=== PATIENT | female | born 1975 | race Caucasian/White ===

== ENCOUNTER → 2019-04-12 14:00 | Outpatient (CLI) | payer OTHER, SELFPAY ==
--- NOTE | 2019-04-12 | DI.MRI.S_ITS ---
PROCEDURE: MR KNEE RT WO CON INDICATIONS: Pain in right knee TECHNIQUE: Noncontrast sagittal PD fast spin echo and T2 fast spin echo with fat saturation, sagittal 3-D FLASH with fat saturation; coronal T1 spin echo and PD fast spin echo with fat saturation, and axial PD fast spin echo with fat saturation through the knee. COMPARISON: None. FINDINGS: Image quality: Excellent. Menisci: Medial meniscus intact. Lateral meniscus intact. Cruciate ligaments: Anterior cruciate ligament appears intact. Posterior cruciate ligament appears intact. Medial structures: The medial collateral ligament appears intact. Semimembranosus tendon appears intact. Visualized portions of the pes anserinus tendons appear normal. No abnormal bursal fluid. Lateral structures: The lateral collateral ligament demonstrates thickening and intrasubstance signal change in keeping with low grade sprain, statistically chronic, although technically age indeterminate. Biceps femoris tendon appears intact. Popliteus tendon grossly unremarkable. Iliotibial band appears intact. Anterior structures: Quadriceps tendon intact. Medial and lateral patellofemoral ligaments intact. There is mild patellar tendinopathy. Prepatellar and superficial infrapatellar subcutaneous edema/fluid. Bones and cartilage: No focal marrow contusion or discrete low signal fracture line. Within the medial compartment, mild diffuse surface fraying of the tibial and femoral cartilage Within the lateral compartment, minimal surface fraying of the central femoral cartilage. The tibial cartilage appears grossly intact Within the patellofemoral compartment, cartilage appears intact Joint space: No pathologic joint effusion. Multiloculated Singletary's cyst measuring overall 4 cm in the cephalocaudad dimension. No specific evidence of intra-articular loose body. IMPRESSION: Mild patellar tendinopathy with adjacent edema/fluid Minimal joint degeneration Singletary's cyst as above Dictated by: Charly Hilton M.D. on 04/15/2019 at 8:06 Approved by: Charly Hilton M.D. on 04/15/2019 at 8:14
== END ==
PROVIDERS: Visit Provider Family Medicine
DX: M25.561 Pain in right knee (principal)
CPT/HCPCS: 73721

== ENCOUNTER → 2020-07-11 14:25 | Outpatient (CLI) | payer OTHER, SELFPAY ==
--- NOTE | 2020-07-11 14:30 | DI.MG.S_ITS ---
BILATERAL DIGITAL SCREENING MAMMOGRAM 3D/2D WITH CAD: 07/11/2020 CLINICAL: Routine screening. Baseline exam. No prior exams were available for comparison. There are scattered fibroglandular elements in both breasts. Current study was also evaluated with a Computer Aided Detection (CAD) system. No significant masses, calcifications, or other findings are seen in either breast. IMPRESSION: NEGATIVE There is no mammographic evidence of malignancy. A 1 year screening mammogram is recommended. This exam was interpreted at Station ID: [id number]. NOTE: For mammograms, a report in lay terms will be sent to the patient. Approximately 15% of breast malignancies will not be visualized mammographically. In the management of a palpable breast mass, a negative mammogram must not discourage biopsy of a clinically suspicious lesion. Electronically Signed By: Gui bailey/ruth:07/13/2020 08:07:32 letter sent: Normal Exam ACR BI-RADS Category 1: Negative [id number]
== END ==
PROVIDERS: PCP Family Medicine; Referring Provider Family Medicine; Visit Provider Family Medicine
DX: Z12.31 Encounter for screening mammogram for malignant neoplasm of breast (principal)
CPT/HCPCS: 77063; 77067

== ENCOUNTER → 2020-12-07 13:07 | Outpatient (CLI) | payer OTHER, SELFPAY ==
--- NOTE | 2020-12-07 | DI.RAD.S_ITS ---
PROCEDURE: XR SACRUM COCCYX MIN 2V INDICATIONS: PAIN TECHNIQUE: 3 views of the sacrum and coccyx acquired. COMPARISON: MR, L-SPINE WITHOUT CONTRAST, 09/24/2009, 14:23. FINDINGS: Bones: No fractures or dislocations. No suspicious bony lesions. Partially visualized lower margin of a fixation procedure that encompasses at least L4 and L5. Soft tissues: Visualized bowel gas pattern is normal. No suspicious soft tissue densities. IMPRESSION: No abnormality seen at the sacrococcygeal junction and lower sacrum. Dictated by: Sami Avelar M.D. on 12/07/2020 at 14:26 Approved by: Sami Avelar M.D. on 12/07/2020 at 14:27
--- NOTE | 2020-12-07 | DI.RAD.S_ITS ---
PROCEDURE: XR CERVICAL SPINE 2V OR 3V INDICATIONS: PAIN TECHNIQUE: 3 view(s) of the cervical spine were acquired. COMPARISON: None. FINDINGS: Bones: No fractures or dislocations to the T1 level. The lateral masses of C1 appear intact on the odontoid view. No suspicious bony lesions. There is moderately severe degenerative disc disease at C5-6 and C6-7, with anterior and posterior projecting osteophytes. Spinal and foraminal stenosis may be present at the lower 3rd of the cervical spine Soft tissues: No prevertebral soft tissue swelling. IMPRESSION: Moderately severe degenerative disc disease C5-C6 and C6-C7 with likelihood of spinal and foraminal stenosis at these 2 levels. Dictated by: Sami Avelar M.D. on 12/07/2020 at 14:22 Approved by: Sami Avelar M.D. on 12/07/2020 at 14:24
== END ==
PROVIDERS: PCP Family Medicine; Referring Provider Family Medicine; Visit Provider Family Medicine
DX: M79.18 Myalgia, other site (principal); M50.322 Other cervical disc degeneration at C5-C6 level; M25.519 Pain in unspecified shoulder
CPT/HCPCS: 72040; 72220

== ENCOUNTER → 2021-02-03 12:10 | Outpatient (CLI) | payer OTHER, SELFPAY ==
--- NOTE | 2021-02-03 | DI.US.S_ITS ---
PROCEDURE: US PELVIC COMPLETE INDICATIONS: Excessive and frequent menstruation with irregular TECHNIQUE: Real-time scanning was performed of the pelvic organs, with image documentation. Additional endovaginal scanning was necessary due to incomplete visualization of the adnexal and endometrial structures by transabdominal scanning. COMPARISON: None. FINDINGS: Uterus: Anteverted, mildly heterogeneous echotexture, and measures 11.4 x 5.7 x 6.2 cm. The endometrium measures 8.7 mm in combined thickness. Ovaries: The right ovary measures 4 x 1.9 x 2.1 cm. A 1.2 x 1.5 x 1.3 cm hypoechoic lesion is seen in the right ovary, likely reflecting a cyst. An additional thick-walled lesion is seen in the right ovary, measuring 1.6 x 1.5 cm, which may reflect a corpus luteum. The left ovary measures 3.1 x 2.3 x 2.5 cm. A 1.5 x 1.4 x 1.5 cm hypoechoic lesion is seen in the left ovary, most consistent with a cyst. Other: No pathologic free abdominal or pelvic fluid. IMPRESSION: Thick-walled lesion in the right ovary as detailed above, which may reflect a corpus luteum. Dictated by: Uriah Méndez M.D. on 02/03/2021 at 12:54 Approved by: Uriah Méndez M.D. on 02/03/2021 at 12:58
== END ==
PROVIDERS: PCP Family Medicine; Referring Provider Family Medicine; Visit Provider Family Medicine
DX: N92.1 Excessive and frequent menstruation with irregular cycle (principal); N83.9 Noninflammatory disorder of ovary, fallopian tube and broad ligament, unspecified
CPT/HCPCS: 76830; 76856

== ENCOUNTER → 2021-02-04 17:56 | Outpatient (CLI) | payer OTHER, SELFPAY | PROVIDERS: PCP Family Medicine; Referring Provider Family Medicine; Visit Provider Family Medicine | DX: M25.512 Pain in left shoulder (principal); Z53.20 Procedure and treatment not carried out because of patient's decision for unspecified reasons ==

== ENCOUNTER → 2021-09-23 10:49 | Outpatient (CLI) | payer OTHER, SELFPAY ==
[2021-09-23 11:31] LABS: Hemoglobin A1C% w Est Avg Glu 5.3 % (4.0-6.0)
[2021-09-25 13:48] LABS: Cholesterol, Total 132 mg/dL (100-199); HDL-Cholesterol 39 mg/dL (>39); HDL-Particle (Total) 30.6 umol/L (>=30.5); LDL Particle 1043 nmol/L (<1000); LDL Size 20.7 nm (>20.5); LDL-Cholsterol 72 mg/dL (0-99); LP-IR Score 73 (<=45); Small LDL- Particle 578 nmol/L (<=527); Triglycerides 118 mg/dL (0-149)
== END ==
PROVIDERS: PCP Family Medicine; Referring Provider Internal Medicine Cardiovascular Disease; Visit Provider Internal Medicine Cardiovascular Disease
DX: E78.41 Elevated Lipoprotein(a) (principal); R73.9 Hyperglycemia, unspecified
CPT/HCPCS: 36415; 80061; 83036; 83704

== ENCOUNTER → 2021-11-24 17:31 | Outpatient (ROUT) | payer OTHER, SELFPAY ==
[2021-11-24 18:13] LABS: Influenza A - CEPHEID Flu A NEGATIVE (NEGATIVE); Influenza B - CEPHEID Flu B NEGATIVE (NEGATIVE)
[2021-11-24 19:27] LABS: COVID-19 CEPHEID PCR (VTM/NP) Negative (Negative)
== END ==
PROVIDERS: PCP Family Medicine; Visit Provider Family Medicine
DX: R05.1 Acute cough (principal); J01.90 Acute sinusitis, unspecified; R06.2 Wheezing; Z11.52 Encounter for screening for COVID-19
CPT/HCPCS: 0240U

== ENCOUNTER → 2022-01-29 10:20 | Outpatient (CLI) | payer OTHER, SELFPAY ==
[2022-01-29 12:32] LABS: Follicle Stimulating Hormone 11.5 mIU/mL
== END ==
PROVIDERS: PCP Family Medicine; Referring Provider Obstetrics & Gynecology; Visit Provider Obstetrics & Gynecology
DX: N92.6 Irregular menstruation, unspecified (principal)
CPT/HCPCS: 36415; 83001

== ENCOUNTER → 2022-02-01 14:46 | Outpatient (CLI) | payer OTHER, SELFPAY ==
--- NOTE | 2022-02-01 14:48 | DI.US.S_ITS ---
PROCEDURE: US PELVIC COMPLETE INDICATIONS: FOLLOW UP ULTRASOUND 02/03/2021 TECHNIQUE: Real-time scanning was performed of the pelvic organs, with image documentation. Additional endovaginal scanning was necessary due to incomplete visualization of the adnexal and endometrial structures by transabdominal scanning. COMPARISON: [facility], US, US PELVIC COMPLETE, 02/03/2021, 12:20. FINDINGS: Uterus: Uterus measures 4.2 x 5.4 x 9.5 with no uterine mass and normal thickness endometrium. There is heterogenous complex fluid within the uterine cavity. Ovaries: The right ovary measures 1.9 x 2.1 x 4.0 centimeters. There is an involuting corpus luteum cyst in the right ovary measuring 1.2 x 1.3 x 1.5 centimeters. Dominant follicle in the left ovary measuring approximately 1.3 centimeters. No solid ovarian or adnexal mass identified Other: No pathologic free abdominal or pelvic fluid. IMPRESSION: Right ovarian mass seen previously is not significantly changed but appears more hypoechoic with a thinner wall, consistent with an involuting corpus luteum cyst. Heterogenous complex fluid in the uterine cavity is consistent with blood products. We strive to produce accurate, complete, and clear reports of imaging services. To assist us in improving patient care, this report was composed using standard report templates and voice recognition software. Therefore, it may contain abnormal punctuation, insertions and/or omissions. Occasional wrong-word or sound-alike substitutions may occur. Though we review the report and make efforts to correct it, we do recommend that the report be read carefully in proper context to recognize any text inaccuracies. Dictated by: Ervin Lee M.D. on 02/01/2022 at 16:22 Approved by: Ervin Lee M.D. on 02/01/2022 at 16:29
== END ==
PROVIDERS: PCP Family Medicine; Referring Provider Obstetrics & Gynecology; Visit Provider Obstetrics & Gynecology
DX: N92.6 Irregular menstruation, unspecified (principal); R10.2 Pelvic and perineal pain; N83.9 Noninflammatory disorder of ovary, fallopian tube and broad ligament, unspecified
CPT/HCPCS: 76830; 76856

== ENCOUNTER → 2022-12-13 14:47 | Outpatient (CLI) | payer OTHER, SELFPAY ==
--- NOTE | 2022-12-13 | DI.MG.S_ITS ---
BILATERAL DIGITAL SCREENING MAMMOGRAM 3D/2D WITH CAD: 12/13/2022 CLINICAL: Routine screening. Comparison is made to exam dated: 07/11/2020 mammogram - [facility]. There are scattered areas of fibroglandular density in both breasts (category b / 25%-50% glandular tissue). Current study was also evaluated with a Computer Aided Detection (CAD) system. No significant masses, calcifications, or other findings are seen in either breast. There has been no significant interval change. IMPRESSION: NEGATIVE There is no mammographic evidence of malignancy. A 1 year screening mammogram is recommended. Based on the Tyrer Cuzick model (a risk assessment model) the patient's lifetime risk is 10.2% and her 10 year risk is 2.2%. According to the ACR, ACS, and NCCN guidelines, an annual breast MRI exam along with mammogram is recommended if the patient's lifetime risk is 20% or greater. This exam was interpreted at Station ID: [id number]. NOTE: For mammograms, a report in lay terms will be sent to the patient. Approximately 15% of breast malignancies will not be visualized mammographically. In the management of a palpable breast mass, a negative mammogram must not discourage biopsy of a clinically suspicious lesion. Electronically Signed By: Mick benitez/ruth:12/14/2022 13:20:37 letter sent: Normal Exam ACR BI-RADS Category 1: Negative 3341F
== END ==
PROVIDERS: PCP Family Medicine; Referring Provider Family Medicine; Visit Provider Family Medicine
DX: Z12.31 Encounter for screening mammogram for malignant neoplasm of breast (principal)
CPT/HCPCS: 77063; 77067

== ENCOUNTER → 2023-01-05 16:19 | Outpatient (CLI) | payer OTHER, SELFPAY ==
--- NOTE | 2023-01-05 | DI.US.S_ITS ---
PROCEDURE: US PELVIC COMPLETE INDICATIONS: dysmenorrhea TECHNIQUE: Real-time scanning was performed of the pelvic organs, with image documentation. Additional endovaginal scanning was necessary due to incomplete visualization of the adnexal and endometrial structures by transabdominal scanning. COMPARISON: [facility], , PELVIC COMPLETE, 02/03/2021, 12:20. [facility], , PELVIC COMPLETE, 02/01/2022, 15:04. FINDINGS: Uterus: Uterus is anteverted and normal in size at 10.3 x 5.7 x 6.1 cm. The myometrium is homogeneous. The endometrium measures 10 mm combined thickness. There are multiple uterine fibroids. -there is a 1.4 x 1.3 x 1.3 cm subserosal fibroid is in the posterior uterine wall at midline. -there is a 1.0 x 0.8 x 1.3 cm intramural fibroid in the anterior uterine wall at midline. -there is a 1.2 x 1.3 x 0.8 cm intramural fibroid in the left posterior uterine wall. Ovaries: The right ovary measures 3.3 x 1.9 x 2 point cm, with a calculated ovarian volume of 7.8 cc. The left ovary measures 3.4 x 2.1 x 2.5 cm, with a calculated ovarian volume of 9.5 cc. The ovaries have a normal sonographic appearance. Less than 12 follicles can be seen in each ovary. No adnexal masses are seen. Other: No pathologic free abdominal or pelvic fluid. IMPRESSION: 1. Myomatous uterus with multiple uterine fibroids. 2. Normal ovaries. We strive to produce accurate, complete, and clear reports of imaging services. To assist us in improving patient care, this report was composed using standard report templates and voice recognition software. Therefore, it may contain abnormal punctuation, insertions and/or omissions. Occasional wrong-word or sound-alike substitutions may occur. Though we review the report and make efforts to correct it, we do recommend that the report be read carefully in proper context to recognize any text inaccuracies. Dictated by: Sanam Nuñez M.D. on 01/05/2023 at 20:08 Approved by: Sanam Nuñez M.D. on 01/06/2023 at 11:10
== END ==
PROVIDERS: PCP Family Medicine; Referring Provider Family Medicine; Visit Provider Family Medicine
DX: N94.6 Dysmenorrhea, unspecified (principal); D25.1 Intramural leiomyoma of uterus; D25.2 Subserosal leiomyoma of uterus
CPT/HCPCS: 76830; 76856; 93975

== ENCOUNTER 2023-04-24 12:06 | Day surgery (SDC) | payer OTHER, SELFPAY ==
[2023-04-13 14:23] VITALS: BMI 44.9
[2023-04-24] VITALS (7 sets, daily range): BP systolic 123–151; BP diastolic 78–104; PULSE 64–82; RESP 9–18; TEMP 36.3–37.1; O2SAT 89–99; BMI 45.4
--- NOTE | 2023-04-24 | PATH_ITS ---
[facility] Accession Number: [id number] No. of containers..02 Tissue . 01 Material submitted: . PART A: fallopian tube - BILATERAL FALLOPAIN TUBES PART B: peritoneum - PERITONEAL BIOPSY . 01 Diagnosis: A. Bilateral Fallopian Tubes, Salpingectomies: Bilateral fimbriated fallopian tubes with simple benign peritubal cysts. No evidence of neoplasm. . B. Peritoneum, Biopsy: Consistent with endometriosis. No evidence of malignancy. [facility] 05/01/2023 1122 Local . 01 Electronically signed: . Tex Dimas MD, PhD, Pathologist NPI- [id number] . 01 Gross description: . A. Received in formalin, labeled with the patient's name, , and bilateral fallopian tubes, consists of two unoriented fimbriated fallopian tubes measuring 5.7 x 0.5 cm and 5.0 x 0.6 cm, respectively. Both tubes have violaceous smooth serosa with multiple cystic structures measuring up to 0.2 cm in greatest dimension filled with clear serous fluid. Sectioning reveals unremarkable stellate lumens. Machine Fitter sections to include one-half of bisected fimbriae and cross sections are submitted as follows: A1: Longer fallopian tube. A2: [place] fallopian tube. B. Received in formalin, labeled with the patient's name, , and peritoneal biopsy, consists of an irregular lima soft tissue fragment measuring 0.7 x 0.4 x 0.3 cm. One aspect is inked blue. The specimen is bisected and submitted entirely in cassette B1. ([id number]) /MRV 04/25/2023 1229 Local . 01 Microscopic: . B. Sections are of fibrous tissue with irregular cystic spaces lined by a bland-appearing cuboidal epithelium. To further evaluate the focus of interest, a limited panel of immunohistochemical stains is performed (each with an appropriately positive control). The epithelium is strongly and diffusely positive for PAX8 nuclear immunoreactivity. A CD10 immunohistochemical stain highlights surrounding endometrial type stroma, not apparent on the H/E stain. The overall features are consistent with endometriosis. No malignancy is identified. . . * This test was developed and its performance characteristics determined by [facility]. It has not been cleared or approved by the U.S. Food and Drug Administration. The FDA has determined that such clearance or approval is not necessary. This test is used for clinical purposes. It should not be regarded as investigational or for research. . 01 Pathologist provided ICD-10: Z30.2, N80.9 . 01 CPT . 798213, 395386, X50253, C84310 Specimen Comment: A courtesy copy of this report has been sent to [facility] Pathology Performed at: 01 [facility] [address] [place] [address], [place], [place] [id number] MD Rick Lamb MD Phone: [phone]
[2023-04-24] MEDS: LACTATED RINGERS 1,000 ML 42 ML IV (12:29)
--- NOTE | 2023-04-24 12:50 | PM.PREOP ---
Pre-operative Note Interval Note History & Physical reviewed/Exam performed by Physician: Yes Changes to H&P: No H&P completed within 30 days and has changed as indicated here:: See H&P from 04/18/23.
[2023-04-24] MEDS: SCOPOLAMINE 1 PATCH TOP (13:03)
--- NOTE | 2023-04-24 14:00 | SUR.OPER ---
Lithotomy on padded OR bed, head on pillow, arms secured on padded arm boards at <90 degrees abduction. Legs secured in padded yellow fins stirrups.
[2023-04-24] MEDS: BUPIVACAINE 0.25% (PF) VIAL 30 ML INJ (14:08)
--- NOTE | 2023-04-24 14:41 | PM.OP.1 ---
Operative Date/Time/Diagnoses Date of procedure: 04/24/23 Time of procedure: 13:30 Pre-op diagnosis: Severe dysmenorrhea Post-op diagnosis: same Procedure & Clinicians Procedure: Diagnostic laparoscopy Laparoscopic opportunistic bilateral salpingectomy Fulguration of endometriosis Same procedure as scheduled: Yes Indications: 48-year-old admitted today for planned laparoscopy as above. She reports always having pain during her periods, but this has gotten worse since the delivery of her child 8 years ago. She states that she has severe cramps with nausea during her period. She has a hot shooting pain that radiates from her hips as well. She also reports having migraines during her menstrual cycles. She reports regular monthly cycles lasting 4-5 days with moderate to heavy flow. She is not using anything for contraception. She previously tried oral contraceptive pills at age 39 however had severe nausea, vomiting, and food aversions with it. She has tried Celebrex, ice, heating pads, but is debilitated during her period. Surgeon: Marina Oliva Click Yes if Unassisted: Yes Anesthesia Type: General Operative Notes Findings: Several stellate lesions seen in the ovarian fossae and uterosacral ligaments. Normal appearing uterus, bilateral fallopian tubes, and bilateral ovaries. Left ovary with 1cm hemorrhagic cyst vs. endometrioma. Normal appearing liver edge. Specimen(s): other (bilateral fallopian tubes, peritoneal biopsy) Estimated Blood Loss (mL): 5 Blood products transfused: none Procedure in detail: The risks, benefits, indications and alternatives of the procedure were reviewed with the patient and informed consent was obtained. The pt was taken to the operating room where general anesthesia was obtained without difficulty. The pt was then placed in the low lithotomy position using gel-padded Aurelio Stirrups. Sequential compression devices were placed bilaterally for VTE prophylaxis. Pt was then prepped and draped in the usual sterile fashion. A Bryan catheter was placed without difficulty. Attention was then turned to the patient?s abdomen where a 5mm skin incision was made in the inferior aspect of the umbilicus after injection of 0.25% marcaine. A 5mm trocar and sleeve were then carefully introduced into the peritoneal cavity under direct visualization at a 90-degree angle while tenting up the abdominal wall. Intra-peritoneal placement was confirmed under direct visualization with the laparoscope with entry pressure <5mmHg. A pneumoperitoneum was obtained with several liters of CO2 gas, maximum pressure of 15mmHg. Upon entry into the peritoneal cavity, structures immediately below the incision were inspected and found to be free of injury. Two additional 5mm trocars were placed in the left lateral aspect of the abdominal wall under direct laparoscopic visualization after injection of 0.25% marcaine at each site. A survey of the pt?s abdomen and pelvis was notable for the above findings. Using an atraumatic grasper, the left fallopian tube was tented up. In a stepwise fashion, the left fallopian tube was removed from the fimbriated end to the cornual end with ultimate excision of the fallopian tube using the Ligasure. The same procedure was performed on the patient?s right side to excise the right fallopian tube. Both fallopian tubes were removed from the abdomen via the lateral port sites. All pedicles were re-examined and noted to be hemostatic. A stellate lesion was localized on the right uterosacral ligament and grasped with a grasper. This peritoneum was then excised with monopolar scissors. The other stellate lesion seen in the left ovarian fossa was fulgurated with the monopolar scissors. The gas was then turned off and all CO2 was removed from the pt?s abdomen. The trocars were removed. The skin incision sites were reapproximated using 4-0 monocryl and dermabond. The bryan catheter was removed from the bladder. All instruments were confirmed to be removed from the vagina. At the completion of the case the sponge and needle counts were correct x 2. The patient tolerated the procedure well and was taken to the PACU in stable condition. Complications: none Post-operative Condition: stable Disposition: PACU Plan for aftercare: Follow-up in clinic as scheduled.
[2023-04-24] MEDS: OXYCODONE IR 5 MG TABLET PO (14:59)
[2023-04-24] MEDS: ONDANSETRON 4 MG/2 ML INJ IV (15:21)
== END 2023-04-24 15:46 | disposition home or self-care (01) ==
PROVIDERS: PCP Family Medicine; Referring Provider Student in an Organized Health Care Education/Training Program; Visit Provider Student in an Organized Health Care Education/Training Program
PROC: (CPT 58661; principal; 2023-04-24 13:30)
DX: N94.6 Dysmenorrhea, unspecified (principal); R10.2 Pelvic and perineal pain; N83.8 Other noninflammatory disorders of ovary, fallopian tube and broad ligament
CPT/HCPCS: 58661; 58662; J1170; J1885; J2250; J2405; J2704; J3010

== ENCOUNTER 2023-08-21 12:46 | Day surgery (SDC) | payer OTHER, SELFPAY ==
[2023-08-14 12:38] VITALS: BMI 45.6
[2023-08-21] VITALS (24 sets, daily range): BP systolic 110–146; BP diastolic 58–100; PULSE 72–84; RESP 11–19; TEMP 36–36.6; O2SAT 92–99; BMI 45.6
--- NOTE | 2023-08-21 | PATH_ITS ---
[facility] Accession Number: [id number] No. of containers..01 Tissue . 01 Material submitted: . uterus - UTERUS, OVARIES, CERVIX . 01 Diagnosis: UTERUS, BILATERAL OVARIES AND CERVIX, HYSTERECTOMY AND BILATERAL OOPHERECTOMY: Cervix with no significant diagnostic alterations. Secretory endometrium. Leiomyomata. Bilateral ovaries with benign simple serous cyst, cysic follicle and and inclusion cyst. [facility] 08/29/2023 1254 Local . 01 Electronically signed: . Desi Smith MD, Pathologist NPI- [id number] . 01 Gross description: . Received in formalin with two identifiers and uterus, bilateral tubes, ovaries, and cervix, is a partially opened uterus (187 grams, 10.6 cm superior to inferior, 8.5 cm medial to lateral, 6.2 cm anterior to posterior) with a bisected cervix (reapproximated to measure 2.5 x 2.4 cm), left ovary (14 grams, 4.7 x 2.9 x 2.0 cm), right ovary (13 grams, 5.4 x 3.0 x 2.0 cm) with no fimbriae, and possible fallopian tube stumps identified, consistent with previous salpingectomy. . The ectocervix is lima and finely granular with a patulous os reapproximated to measures 0.4 cm in diameter. The anterior paracervical margin has a surgical defect measuring 4.1 cm in length stopping before the uterine serosa, and the posterior paracervical margin has a surgical defect measuring 1.5cm in length. The anterior paracervical margin is inked blue while the posterior paracervical margin is inked black. . The serosa is lima to congested with no distinct pinpoint areas of hemorrhage identified. The endocervical canal has lima herringbone mucosa and measures 3.9 cm in length. The endometrial cavity measures 3.2 cm from cornu to cornu and 5.5 cm in length with red, lush endometrium that averages 0.3 cm thick. The myometrium has moderate trabeculation and measures up to 2.9 cm in maximum thickness with several well-circumscribed, white, whorled nodules ranging from 0.3 to 1.6 cm in greatest dimension with no hemorrhage or necrosis identified. . The left ovary has a lima to congested, smooth external surface. The cut surface has several thin, smooth-walled cystic structures ranging from 0.4 to 1.4 cm in greatest dimension filled with lima serous fluid. The remaining cut surfaces are physiologic and unremarkable. . The right ovary has a lima to congested, cerebriform external surface, and the cut surface has a cystic structure measuring 1.3 cm in greatest dimension within smooth waterman filled with hemorrhagic material. . Tentering Machine Off Bearer sections are submitted as follows: A1: Anterior and posterior cervix. A2: Anterior full thickness section. A3: Posterior full thickness section. A4: Serosa. A5: Rep nodules. A6: Left ovary. A7: Right ovary. ([id number]) /MRV 08/22/2023 1358 Local . 01 Pathologist provided ICD-10: D25.9 . 01 CPT . 797280 Specimen Comment: A courtesy copy of this report has been sent to [facility] Pathology Performed at: [address] [facility] Cytology [address] [place] [address], [place], [place] [id number] MD Rick Lamb MD Phone: [phone]
[2023-08-21] MEDS: SCOPOLAMINE 1 PATCH TOP (13:02)
[2023-08-21] MEDS: LACTATED RINGERS 1,000 ML 42 ML IV ×3 (13:02→16:45)
--- NOTE | 2023-08-21 13:20 | PM.PREOP ---
Pre-operative Note Interval Note History & Physical reviewed/Exam performed by Physician: Yes Changes to H&P: No H&P completed within 30 days and has changed as indicated here:: see H&P from 08/15/23
[2023-08-21] MEDS: ACETAMINOPHEN IV 1,000 MG/100 ML VIAL 400 MG IV (13:40)
[2023-08-21] MEDS: CEFAZOLIN VIAL 3 GM in SODIUM CHLORIDE 0.9% 100 ML IV (13:50)
[2023-08-21] MEDS: BUPIVACAINE 0.25% (PF) VIAL 30 ML INJ (15:16)
--- NOTE | 2023-08-21 16:28 | P.OP_ITS ---
Operative Date/Time/Diagnoses Date of procedure: 08/21/23 Time of procedure: 14:00 Pre-op diagnosis: 1. Abnormal uterine bleeding 2. Pelvic pain 3. Uterine fibroids 4. Endometriosis Post-op diagnosis: same Procedure & Clinicians Procedure: Total laparoscopic hysterectomy Bilateral oophorectomy Cystoscopy Same procedure as scheduled: Yes Indications: 48yo F with AUB-L and endometriosis, desiring definitive management for her pain and bleeding. Failed medical management of her symptoms, thus she was counseled and consented for TLH/MATT. Surgeon: Marina Oliva Fulling Mill Operator: Kierra Mcknight Anesthesia Type: General Operative Notes Findings: Normal appearing uterus and bilateral ovaries. Bilateral fallopian tubes were surgically absent. Normal appearing liver edge and gallbladder. Closure Type: primary Specimen(s): other (uterus, cervix, bilateral ovaries) Applied: catheter Estimated Blood Loss (mL): 100 Blood products transfused: none Procedure in detail: The risks, benefits, indications and alternatives of the procedure were reviewed with the patient and informed consent was obtained. The pt was taken to the operating room where general anesthesia was obtained without difficulty. The pt was then placed in the low lithotomy position using Aurelio Stirrups and arms were tucked with padding. Sequential compression devices were placed bilaterally for VTE prophylaxis. She was then prepped and draped in the sterile fashion and a Bryan catheter was placed. A [employer] uterine manipulator was placed through the cervix into the uterus for uterine manipulation. Attention was then turned to the patient?s abdomen were a 5mm skin incision was made in the inferior aspect of the umbilicus after injecting 0.25% Marcaine. A 5mm trocar and sleeve were then carefully introduced into the peritoneal cavity under direct visualization at a 90-degree angle while tenting up the abdominal wall. Intra-peritoneal placement was confirmed under direct visualization with the laparoscope with entry pressure <5 mmHg. A pneumoperitoneum was obtained with several liters of CO2 gas, maximum pressure of 15 mmHg. Upon entry into the peritoneal cavity, structures immediately below the incision were inspected and found to be free of injury. A survey of the patient's abdomen and pelvis was notable for the above findings. Three additional 5mm port sites, one in the right lateral side and two in the left lateral side, were placed under direct laparoscopic guidance. The Powerseal device was used to clamp, cut, and ligate the left infundibulopelvic ligament. The left utero-ovarian and round ligaments were then clamped, cut, and ligated. The anterior broad ligament was then incised along the bladder reflection, and the bladder was dissected off the lower uterine segment until endopelvic fascia was visualized. The left uterine artery was then identified, skeletonized, and ligated. The same procedure was then carried out and completed on the right side. The anterior colpotomy was then made using the Bovie L-hook and continued circumferentially inferior to the cervix using the colpotomy ring as a guide. The entire cervix and uterus was then successfully amputated and delivered through the vagina. The left cardinal ligament was bleeding, thus this was carefully ligated and cauterized with the Powerseal. Excellent hemostasis was noted. The 0 Stratafix suture was then introduced into the abdominal cavity via the vagina. The vaginal cuff was then closed laparoscopically with the barbed suture in a running fashion. The suture needle was removed via the lateral port under direct visualization. The bryan catheter was then removed, and the cystoscope was then primed and advanced through the urethra and into the bladder. Both ureteral orifices were identified and bilateral efflux of urine was visualized. A survey of the bladder did not show defects or visible suture. The cystoscope was then removed and the bladder was drained. The bryan catheter was then replaced. Attention was then returned to the abdomen, where the pelvis was then irrigated and suctioned. A small area was bleeding on the left superior to the colpotomy, which was ligated carefully with the Powerseal. Excellent hemostasis was noted. Two pieces of Surgicel were placed along the cuff to aid in hemostasis. The p neumoperitoneum was then released, and the remaining ports were removed. The skin incisions were then reapproximated using 4-0 monocryl suture in a subcuticular fashion and covered with Dermabond. At the completion of the case the sponge and needle counts were correct x 2, and all instruments/laps were confirmed removed from the vagina. The patient was taken to the PACU in stable condition. Complications: none Post-operative Condition: stable Disposition: PACU Plan for aftercare: Plan for overnight stay with discharge in the morning.
[2023-08-21] MEDS: LORazepam 2 MG/ML INJ 0.25 MG IV ×2 (16:41→17:04)
[2023-08-21] MEDS: HYDROMORPHONE 1 MG INJ IV ×10 (16:44→18:10)
[2023-08-21] MEDS: ALBUTEROL/IPRATROPIUM 3 ML AMPUL INH (16:53)
[2023-08-21] MEDS: OXYCODONE IR 5 MG TABLET PO ×3 (17:03→22:00)
--- NOTE | 2023-08-21 17:05 | SUR.PHASEI ---
Patient started coughing and reported difficulty breathing. O2 sats in the 90s on 2L O2. Lung sounds congested. Jenna Jefferson notified and rosana washington ordered and provided.
--- NOTE | 2023-08-21 17:32 | SUR.PHASEI ---
Report called to Nirali
--- NOTE | 2023-08-21 17:35 | SUR.PHASEI ---
Report given to Soha
[2023-08-21] MEDS: hydrOXYzine 50 MG/ML INJ IM (18:06)
[2023-08-21] MEDS: KETOROLAC 30 MG/ML VIAL IV ×2 (19:02→23:55)
[2023-08-21] MEDS: ACETAMINOPHEN 325 MG TABLET 650 MG PO ×2 (19:02→23:54)
--- NOTE | 2023-08-21 19:09 | PC.NURSE ---
183--rec'd pt from PACU drowsy but arousable; reports pain 4/10 and tolerable with ice pack; randi remains in; o2/2l/nc; lap sites x 4 intact
[2023-08-21] MEDS: DOCUSATE 100 MG CAPSULE 200 MG PO (22:00)
[2023-08-22 05:24] VITALS: BP 111/53; PULSE 80; RESP 18; TEMP 36.6; O2SAT 98
[2023-08-22] MEDS: KETOROLAC 30 MG/ML VIAL IV ×2 (06:00→12:16)
[2023-08-22] MEDS: ACETAMINOPHEN 325 MG TABLET 650 MG PO ×2 (06:00→12:16)
[2023-08-22 07:45] VITALS: BP 112/58; PULSE 87; RESP 18; TEMP 36.4; O2SAT 99
--- NOTE | 2023-08-22 08:02 | P.DS_ITS ---
History of Present Illness History of Present Illness Chief complaint: Laparoscopic Total Hysterectomy Discharge Providers Provider Date of admission: 08/21/23 18:48 Discharge Date: 08/22/23 Primary care physician: Annemarie Mcdaniels MD Discharge provider: Marina Oliva DO Summary Hospital Course Discharge Diagnosis: Abnormal uterine bleeding Pelvic pain Uterine leiomyomata Endometriosis Hospital Course: 48yo F admitted on day of surgery for planned TLH/MATT. Her procedure was uncomplicated. By post-op day #1, she was ambulating, tolerating regular diet, voiding spontaneously with no vaginal bleeding. Thus she was discharged to home on post-op day #1. Status at Discharge Cognitive/behavioral status at discharge: oriented Functional status at discharge: independent ambulation Overall status at discharge: patient is progressing back to baseline Time Spent with Patient Time spent: Less than 30 minutes Exam Vital Signs (past 8 hours): - 08/22/23 05:24 Temperature 97.9 F Pulse Rate 80 Respiratory Rate 18 Blood Pressure 111/53 L Pulse Oximetry 98 Oxygen Flow Rate 1 Oxygen Delivery Method Nasal Cannula Oxygen Flow Rate 1 Const General: comfortable and No acute distress Resp Effort & Inspection: normal respiratory effort and able to speak in complete sentences GI Inspection: normal to inspection Palpation: soft and tender (appropriately) Skin Other: 4 laparoscopic incisions clean/dry/intact with dermabond in place Neuro Cognition: normal cognition Speech: speech normal Extrem General: normal to inspection and no calf tenderness Psych Mood: congruent mood Affect: normal affect [facility] Medical History (Updated 08/22/23 @ 08:08 by Marina Oliva DO) Endometriosis determined by laparoscopy Morbid obesity with BMI of 40.0-44.9, adult Psoriasis Dysmenorrhea Hyperglycemia Asthma, intrinsic Depression Anxiety HLD (hyperlipidemia) Vaginal delivery Surgical History (Updated 08/15/23 @ 10:49 by Marina Oliva DO) History of gynecologic surgery (04/24/23) Status post laparoscopy History of fusion of lumbar spine (2009) History of knee surgery Social History household members: spouse and children Smoking Status: Current every day smoker alcohol intake: current Discharge Assessment & Plan Assessment and Plan Assessment: 48yo F with AUB-L and endometriosis, now s/p TLH/MATT. Plan of Treatment: Meeting discharge criteria on post-op day #1, thus discharged to home with scheduled follow-up. Discharge Plan Discharge Plan Patient Disposition: Home Provider Discharge Comment: Take ibuprofen or naproxen (don't take both together) for pain. You may also take acetaminophen for pain. Use oxycodone as needed for severe breakthrough pain. Start using the estradiol patches immediately. Avoid lifting greater than 20lbs for at least 4 weeks. Avoid placing anything in the vagina for at least 6 weeks. Discharge orders & Medications Discharge Orders: Discharge (Order); Ordered 08/22/23 Ordered By: Marina Oliva Prescriptions: New oxycodone 5 mg Tablet 5 mg PO Q4HR PRN (Reason: Pain, Moderate (4-6)) Qty: 10 0RF estradiol 0.05 mg/24 hr patch semiweekly 1 patch transdermal 2XW Qty: 8 6RF Rx Instructions: apply 1 patch for 3 days alternating with 1 patch for 4 days each week for 3 wks per 4-wk cycle Continued bupropion HCl [Wellbutrin SR] 100 mg tablet sustained-release 12 hr 100 mg PO DAILY rosuvastatin 20 mg tablet 20 mg PO DAILY escitalopram oxalate [Lexapro] 10 mg tablet 10 mg PO DAILY naproxen 250 mg Tablet 250 mg PO DAILY PRN (Reason: Pain (Scale Score 4-6)) losartan 25 mg tablet 25 mg PO DAILY Follow up/Referrals: aMrina Oliva DO [Physician] - Diet/Activity/Treatments Diet: Diet as Tolerated Activity: As tolerated Skin/Wound/Dressing Care Skin care: You may shower normally. Report to your healthcare provider any signs of infection, such as:: chills, fever, increased pain, unusual drainage and unusual redness Visit Report/Discharge Packet Instructions: Managing Symptoms of Menopause, DI for Hysterectomy, DI for Laparoscopy, DI for Prescription Opioid Use Stand Alone Forms: Patient Portal/API, Stroke Signs & Symptoms Discharge Data Primary Care Provider: Annemarie Mcdaniels Attending Provider: Marina Oliva Quality VTE Deep Vein Thrombosis/Pulmonary Embolism Present on Admission: No
[2023-08-22] MEDS: ATORVASTATIN 20 MG TABLET 40 MG PO (09:07)
[2023-08-22] MEDS: buPROPion SR 100 MG TAB PO (09:07)
[2023-08-22] MEDS: DOCUSATE 100 MG CAPSULE 200 MG PO (09:07)
--- NOTE | 2023-08-22 11:03 | CM.DANOTE ---
Brief DCP Assessment note Pt is a 48yo F here following total hysterectomy for dysmenorrhea/endometriosis with Dr. Oliva on 08.21.23. Pt is POD 1. PCP Arslan Vinson and self pay [employer] reveiwed EMR. Per chart review, pt ambulating, tolerating reg diet, and overall doing well. Per RN, no obvious CM needs, spouse on way to transport home, and dc is just pending pt voiding indep at this time. Plan: no identified barriers to safe return home with spouse at this time, CM team will continue to follow as needed. REGGIE Maria Discharge Planning/Care Management CM Discharge Assessment Start: 08/22/23 11:02 Freq: Status: Active Protocol: Document 08/22/23 11:02 (Rec: 08/22/23 11:03 [id number]) Discharge Planning Assessment Assigned Lpn Medical Assistant REGGIE Atkinson DPOA/Assigned Designee Name Josiah spouse Contact Information [phone] Advance Directives? No History Provided By Patient,Medical Record Prior Living Arrangements House Household Members spouse,children Type of transporation used prior to Drives own vehicle admit Independent with ADL's Yes Is patient alert and oriented? Yes Barriers to Discharge No Discharge Plan Home Transportation Arrangement spouse in POV Referrals Initiated None needed Whiteboard Updated in Patient Room with No name and ext. # of Lpn Medical Assistant Review Status In Process Please Provide Date Initial DC 08/22/23 Assessment Was Performed Next Review Type Continued Stay Review Pre-Anesthesia Assessment Start: 08/14/23 12:38 Freq: Status: Complete Protocol: Document 08/14/23 12:38 [facility] (Rec: 08/14/23 12:44 [facility] [id number]) Pre-Anesthesia Assessment Patient Information Reviewed Via Chart Review Primary Care Provider Annemarie Mcdaniels Seen Specialist in Last 12 Months Yes Specialist Seen Equipment Validation Specialist Primary Language Setswana Preferred Language Setswana Height 170.18 cm Weight 131.995 kg Body Mass Index (BMI) 45.6 Hx Anesthesia Reactions No Hx Family Anesthesia Reaction No Hx Malignant Hyperthermia No Hx Blood Transfusion Reaction No Anesthesia Review Requested No Wealth Management Director No alcohol intake current alcohol intake frequency a few times a week Smoking Status Never smoker how long ago did patient quit smoking 2010 Substance Use Type marijuana Pain Present Pain Reported Patient is completely paralyzed or No completely immobile Mental Status Oriented to own ability Is patient on oxygen? No Hx Sleep Apnea No CPAP/BIPAP use not prescribed Currently Taking a Beta Tani No Anti-Coagulant Therapy No Has a Retail Clerk No Cardiac Testing No Hx Pacemaker/ICD No Pacemaker Rep Required? No Gastrointestinal Symptoms Cramping Genitourinary Symptoms Pelvic Pain Urinary Catheter Present No Hx Urinary Self Catheterization No Diabetes No: Hx of hyperglycemia Patient No Lactating No Presence of External or Internal Medical Yes: lumbar fusion Devices Received a COVID vaccine? Yes Marital Status Lives With spouse,children Patient Discharge Plan Description Return Home Advance Directives? No
== END 2023-08-22 12:38 | disposition home or self-care (01) ==
LOC: OR 12:46 → ICU 08-22 08:07
PROVIDERS: PCP Family Medicine; Referring Provider Student in an Organized Health Care Education/Training Program; Visit Provider Student in an Organized Health Care Education/Training Program
PROC: 0UT94ZZ Resection of Uterus, Percutaneous Endoscopic Approach (ICD-10-PCS; CPT 58571; principal; 2023-08-21 14:00)
DX: N93.9 Abnormal uterine and vaginal bleeding, unspecified (principal); N94.6 Dysmenorrhea, unspecified; D25.9 Leiomyoma of uterus, unspecified; N83.292 Other ovarian cyst, left side; N83.291 Other ovarian cyst, right side
CPT/HCPCS: 58571; 81025; G0378; J0136; J0690; J1100; J1170; J1885; J2060; J2250; J2405; J2704; J3010; J3410

== ENCOUNTER → 2024-03-07 09:15 | Outpatient (CLI) | payer OTHER, SELFPAY ==
[2023-08-21 18:53] VITALS: BMI 45.6
[2024-03-07 10:22] LABS: Add Manual Diff / Slide Review NO; Basophils Absolute Auto 0 /uL (0-100); Eosinophils Absolute Auto 100 /uL (0-450); Eosinophils Percent Auto 1.9 % (2-4); Hematocrit 41.1 % (36-46); Hemoglobin 13.8 g/dL (12.0-16.0); Lymphocytes Absolute Auto 1200 /uL (1100-4500); Lymphocytes Percent Auto 25.3 % (25-40); Mean Corpuscular HGB Conc 33.7 % (30-36); Mean Corpuscular Hemoglobin 29.6 PG (26-34); Monocytes Absolute Auto 200 /uL (0-900); Monocytes Percent Auto 4.9 % (3-14); Neutrophils Absolute Auto 3200 /uL (1500-7000); Neutrophils Percent Auto 66.9 % (50-75); Platelet Count 214 X10^3/uL (150-400); Red Blood Cell Count 4.67 X10^6/uL (4.0-5.2); Red Cell Distribution Width 13.4 % (11.6-14.8); White Blood Cell Count 4.8 X10^3/uL (4.5-11.0)
[2024-03-07 10:34] LABS: Alanine Aminotransferase 29 IU/L (<35); Albumin 4.4 g/dL (3.5-5.0); Albumin Globulin Ratio 1.8 (1.0-2.8); Alkaline Phosphatase 70 U/L (38-126); Aspartate Aminotransferase 29 IU/L (14-36); BUN Creatinine Ratio 23.3 (6-22); Bilirubin Total 0.5 mg/dL (0.2-1.3); Blood Urea Nitrogen 17 mg/dL (7-17); Calcium 9.5 mg/dL (8.4-10.2); Carbon Dioxide 30 mmol/L (22-32); Chloride 101 mmol/L (98-107); Cholesterol 111 mg/dL (140-199); Estimated Glomerular Filt Rate > 60 mL/min (>60); Globulin 2.4 g/dL (1.7-4.1); Glucose 132 mg/dL (70-100); HDL Cholesterol 33 mg/dL (40-60); HEMOLYSIS < 15 (0-50); LDL Cholesterol Calculated 50 mg/dL (<100); Magnesium 1.8 mg/dL (1.6-2.3); Potassium 4.3 mmol/L (3.4-5.1); Sodium 139 mmol/L (137-145); Total Protein 6.8 g/dL (6.3-8.2); Triglycerides 141 mg/dL (35-150)
[2024-03-07 10:37] LABS: Hemoglobin A1C% w Est Avg Glu 5.8 % (4.0-6.0)
[2024-03-07 11:05] LABS: TSH w/ Reflex to FT4 2.66 uIU/mL (0.47-4.68)
[2024-03-10 10:36] LABS: Cholesterol, Total 108 mg/dL (100-199); HDL-Cholesterol 32 mg/dL (>39); HDL-Particle (Total) 26.1 umol/L (>=30.5); Historical Reading Comment: (.); LDL Particle 779 nmol/L (<1000); LDL Size 20.1 nm (>20.5); LDL-Cholsterol 53 mg/dL (0-99); LP-IR Score 82 (<=45); Small LDL- Particle 488 nmol/L (<=527); Triglycerides 130 mg/dL (0-149)
[2024-03-10 19:38] LABS: Lipoprotein (a) 233.9 nmol/L (<75.0)
== END ==
LOC: LAB 09:17
PROVIDERS: PCP Family Medicine; Referring Provider Internal Medicine Cardiovascular Disease; Visit Provider Internal Medicine Cardiovascular Disease
DX: E78.1 Pure hyperglyceridemia (principal); Z13.0 Encounter for screening for diseases of the blood and blood-forming organs and certain disorders involving the immune mechanism; Z13.1 Encounter for screening for diabetes mellitus
CPT/HCPCS: 36415; 80053; 80061; 83036; 83695; 83704; 83735; 84443; 85025

== ENCOUNTER → 2024-06-26 09:34 | Outpatient (CLI) | payer OTHER, SELFPAY ==
[2023-08-21 18:53] VITALS: BMI 45.6
--- NOTE | 2024-06-26 09:46 | DI.CT.S_ITS ---
PROCEDURE: CT ABDOMEN PELVIS W CON INDICATIONS: cyclic burning pelvic/abdominal pain TECHNIQUE: After the administration of intravenous contrast, axial sections acquired from the lung bases to the pubic symphysis. Coronal and sagittal reformats were performed. For radiation dose reduction, the following was used: automated exposure control, adjustment of mA and/or kV according to patient size. COMPARISON: None. FINDINGS: Image quality: Diagnostic. Lower Chest: No significant findings. ABDOMEN: Liver: No solid mass. There is diffuse hypoattenuation of the liver parenchyma relative to the spleen compatible with hepatic steatosis. Gallbladder: No radiopaque gallstones or wall thickening. Biliary ducts: No biliary dilation. Pancreas: Homogeneous enhancement without focal lesions or pancreatic ductal dilatation. No peripancreatic inflammation or organized fluid collections. Spleen: Mild splenomegaly. Spleen measures up to 13.8 cm in size. Adrenal Glands: No adrenal nodules. Kidneys and Ureters: No hydronephrosis. No solid mass. No complex renal cystic lesion which requires follow up. Bilateral ureter appears non-dilated throughout its expected course without ureteral stones visualized. Stomach and Bowel: Normal colonic caliber, without significant wall thickening. Scattered colonic diverticula with acute inflammatory changes involving a short segment of the mid to distal sigmoid colon no evidence for perforation or abscess formation. No drainable fluid collection seen. No evidence for small bowel obstruction or associated inflammatory changes. The appendix is not definitively visualized. However, no secondary findings of acute inflammation are noted in the right lower quadrant. Peritoneum: No abnormal intraperitoneal fluid. No free air. Ventral Wall: There is a fat-containing umbilical hernia without acute inflammation. Abdominal Nodes: No retroperitoneal or mesenteric adenopathy by size criteria. Vessels: Aorta and inferior vena cava are normal in size. PELVIS: Pelvic Organs: Unremarkable. Bladder: There is mild circumferential urinary bladder wall thickening likely related to incomplete distension. Minimal posterior perivesicular stranding likely related to adjacent inflammatory changes of the sigmoid colon described above. Pelvic Nodes: No enlarged lymph nodes. Miscellaneous: No inguinal hernias are seen. Bones: No aggressive osseous abnormality. Visualized osseous structures appear intact without acute fracture or focal destructive lesion. No acute compression fractures of the imaged spine. Surgical changes from prior lumbar fusion of L4 and L5. IMPRESSION: Colonic diverticulosis with acute diverticulitis involving the mid to distal sigmoid colon. No evidence for perforation or abscess formation. No drainable fluid collection seen. Mild urinary bladder wall thickening and mild posterior wall stranding. This is favored to represent incomplete distension and adjacent inflammatory changes from the segment of inflamed sigmoid colon described above. However, recommend clinical and laboratory correlation for possible cystitis. Other chronic/non-acute findings as above. Dictated by: Gui Castillo M.D. on 06/26/2024 at 11:59 Approved by: Gui Castillo M.D. on 06/26/2024 at 12:09
== END ==
LOC: CT 09:35
PROVIDERS: PCP Family Medicine; Referring Provider Student in an Organized Health Care Education/Training Program; Visit Provider Student in an Organized Health Care Education/Training Program
DX: K57.32 Diverticulitis of large intestine without perforation or abscess without bleeding (principal); D73.9 Disease of spleen, unspecified; K42.9 Umbilical hernia without obstruction or gangrene; R10.2 Pelvic and perineal pain; N80.9 Endometriosis, unspecified; Z98.1 Arthrodesis status
CPT/HCPCS: 74177; Q9967

== ENCOUNTER → 2024-08-02 10:11 | Outpatient (CLI) | payer OTHER, SELFPAY ==
[2023-08-21 18:53] VITALS: BMI 45.6
--- NOTE | 2024-08-02 10:12 | DI.MG.S_ITS ---
MM diagnostic mammo BI: 08/02/2024. BI-RADS: 1 CLINICAL: 49-year old female for bilateral diagnostic mammogram. Tyrer-Cuzick lifetime risk of 16.7%. No personal or first-degree family history of breast cancer. Current reported family history of breast cancer: maternal aunt. The patient reports intermittent pain in the lateral left breast (more than 2 years). PRIOR EXAMS 12/13/2022, 07/11/2020. MAMMOGRAPHY TECHNIQUE: 2D and 3D (tomosynthesis) digital mammographic views obtained, with additional images as needed for full coverage. Current study was also evaluated with a Computer Aided Detection (CAD) system. DENSITY B. There are scattered areas of fibroglandular density. MAMMOGRAPHY FINDINGS Left: Outer Hemisphere: There is no suspicious mammographic finding to account for concern by the patient of pain/tenderness. No suspicious mass, asymmetry, microcalcification, or other abnormality seen. Bilateral: No suspicious mass, asymmetry, microcalcification, or other abnormality seen. No significant change from comparison. IMPRESSION: * No evidence of malignancy. RECOMMENDATIONS Left * Diffuse, non-focal symptoms, such as pain or fullness are typically benign. Clinical follow-up is recommended, and further management of these symptoms should be based on the results of clinical evaluation. If diffuse symptoms persist or become more focal in nature, further clinical evaluation should be considered. Bilateral * Annual screening mammography. COMMENTS: Findings and recommendations were conveyed to the patient during today's evaluation. OVERALL ASSESSMENT CATEGORY BI-RADS-1: Negative. The [employer] recommends annual screening mammography beginning at age 40 for women with average risk of breast cancer. ELECTRONICALLY SIGNED: Samantha Larson M.D. on 08/02/2024 at 11:03:10 AM PT Interpreting Station ID: [id number]
== END ==
PROVIDERS: PCP Family Medicine; Referring Provider Family Medicine; Visit Provider Family Medicine
DX: N64.4 Mastodynia (principal); Z80.3 Family history of malignant neoplasm of breast
CPT/HCPCS: 77066; G0279

== ENCOUNTER → 2025-02-11 12:21 | Outpatient (CLI) | payer OTHER, SELFPAY ==
[2023-08-21 18:53] VITALS: BMI 45.6
--- NOTE | 2025-02-11 12:25 | DI.RAD.S_ITS ---
PROCEDURE: XR CERVICAL SPINE 3V INDICATIONS: arm paresthesia TECHNIQUE: 3 views of the cervical spine were acquired. COMPARISON: [facility], CR, XR CERVICAL SPINE 2V OR 3V, 12/07/2020, 13:06. FINDINGS: Mild reversal of the normal cervical lordosis centered at C5. Degenerative changes with disc space narrowing, disc its, on go 1 facet atrophic change the C3-4, C4-5, C5-6 and C6-7. No radiographic evidence of fracture or subluxation. IMPRESSION: Mild reversal of the cervical lordosis. Degenerative changes. If symptoms persist or worsen, or there is high clinical suspicion of cervical abnormality, MRI could be performed. Dictated by: Torin Lopez M.D. on 02/11/2025 at 16:06 Approved by: Torin Lopez M.D. on 02/11/2025 at 16:07
== END ==
PROVIDERS: PCP Family Medicine; Referring Provider Family Medicine; Visit Provider Family Medicine
DX: M47.812 Spondylosis without myelopathy or radiculopathy, cervical region (principal); R20.2 Paresthesia of skin
CPT/HCPCS: 72040

== ENCOUNTER → 2025-04-15 15:50 | Outpatient (CLI) | payer OTHER, SELFPAY ==
[2023-08-21 18:53] VITALS: BMI 45.6
--- NOTE | 2025-04-15 15:51 | DI.US.S_ITS ---
PROCEDURE: US CAROTID DOPPLER BI INDICATIONS: MIXED HYPERLIPIDEMA TECHNIQUE: Color and pulse Doppler interrogation was performed of both carotid systems, with image documentation and velocity measurements. COMPARISON: None. FINDINGS: Stenosis calculations are based on SRU (Society of Radiologists in Ultrasound) criteria. Right side: Common carotid artery peak systolic velocity: 62 cm/sec. Internal carotid artery peak systolic velocity: 84 cm/sec. Internal carotid artery end diastolic velocity: 43 cm/sec. External carotid artery peak systolic velocity: 120 cm/sec. ICA/CCA peak systolic ratio: 1.4 . Grimaldo scale imaging description: No visible plaque Percent internal carotid artery stenosis: 50-69% . Vertebral artery: Flow direction is antegrade. Left side: Common carotid artery peak systolic velocity: 70 cm/sec. Internal carotid artery peak systolic velocity: 104 cm/sec. Internal carotid artery end diastolic velocity: 49 cm/sec. External carotid artery peak systolic velocity: 76 cm/sec. ICA/CCA peak systolic ratio: 1.5 . Grimaldo scale imaging description: No visible plaque Percent internal carotid artery stenosis: 50-69% . Vertebral artery: Flow direction is antegrade. IMPRESSION: 1. In the right carotid artery, there is 50-69% stenosis based on peak diastolic velocity criteria. 2. In the left carotid artery, there is 50-69% stenosis based on peak diastolic velocity criteria. 3. Antegrade vertebral arteries. Dictated by: Carroll Lees M.D. on 04/16/2025 at 13:35 Approved by: Carroll Lees M.D. on 04/16/2025 at 13:38
== END ==
LOC: US 15:50
PROVIDERS: PCP Family Medicine; Referring Provider Internal Medicine Cardiovascular Disease; Visit Provider Internal Medicine Cardiovascular Disease
DX: I65.23 Occlusion and stenosis of bilateral carotid arteries (principal); E78.2 Mixed hyperlipidemia; E78.41 Elevated Lipoprotein(a)
CPT/HCPCS: 93880